=== PATIENT | female | born 1995 | race Caucasian/White ===

== ENCOUNTER 2017-09-09 16:50 | Emergency (ER) | END 2017-09-09 19:20 | disposition home or self-care (01) ==

== ENCOUNTER 2018-08-29 14:39 | Emergency (ER) | payer SELFPAY ==
[~2018-08-29] VITALS: Ht 162.6 cm; Wt 70.7 kg
[~2018-08-29 14:39] MED LIST: AMIT25TA9 PO; DIPH25CA6 PO; IBUP-1542 PO; MED4DP PO
[2018-08-29 15:16] VITALS: BP 153/101; PULSE 83; RESP 20; Ht 162.6 cm; Wt 70.7 kg
== END 2018-08-29 17:10 | disposition left against medical advice (07) ==
LOC: FTE 14:39
DX: Z53.21 Procedure and treatment not carried out due to patient leaving prior to being seen by health care provider (principal)

== ENCOUNTER 2018-09-15 11:02 | Emergency (ER) | payer OTHER ==
[~2018-09-15] VITALS: Ht 165.1 cm; Wt 68.7 kg
[2018-09-15 11:13] VITALS: BP 134/96; PULSE 126; RESP 18; Ht 165.1 cm; Wt 68.7 kg
[2018-09-15] MEDS ORDERED: KETOROLAC 30 MG INJ IM STA (12:25)
[2018-09-15] MEDS ORDERED: IBUP100O28 PO (13:19)
[2018-09-15] MEDS ORDERED: UDTYLC PO (13:19)
[2018-09-15] MEDS ORDERED: PENI250S PO (13:19)
--- NOTE | 2018-09-15 13:30 | ERD ---
ER Documentation Chief Complaint Chief Complaint sorethroat & fever x4 days getting worse HPI This is a 23-year-old female patient who presents to the emergency room with complaint of fever of 103 yesterday, sore throat x4 days. Had been to her primary doctor 3 days ago and was prescribed ibuprofen, loratadine, Flonase. States it is difficult to swallow due to pain. No chronic medical conditions. No sick contacts, no recent travel. ROS All systems reviewed and are negative except as per history of present illness. Medications Home Meds Active Scripts Ibuprofen (Ibuprofen) 100 Mg/5 Ml Oral.susp, 35 ML PO Q6H PRN for PAIN AND OR ELEVATED TEMP for 7 Days, #350 ML Prov:KAYE ROSENTHAL NP 09/15/18 Acetaminophen-Codeine* (Tylenol-Codeine* Liq) [id number] Elix, 25 ML PO Q6H PRN for PAIN for 7 Days, #300 ML Prov:KAYE ROSENTHAL NP 09/15/18 Penicillin V Potassium* (Veetids 250*) 250 Mg/5 Ml Susp.recon, 10 ML PO BID for 10 Days, #200 ML Prov:KAYE ROSENTHAL NP 09/15/18 Methylprednisolone* (Medrol* DOSE PACK) 4 Mg/Dose-Pack Tab.ds.pk, 4 MG PO . DIRECTED for 5 Days, PACKET Prov:JEANNIE MARTIN PA-C 09/09/17 Diphenhydramine Hcl* (Diphenhydramine Hcl*) 25 Mg Capsule, 25 MG PO Q6 PRN for ITCHING for 14 Days, CAP Prov:JEANNIE MARTIN PA-C 09/09/17 Reported Medications Amitriptyline Hcl* (Amitriptyline Hcl*) 25 Mg Tablet, 25 MG PO HS, TAB 03/18/14 Ibuprofen* (Ibuprofen*) 600 Mg Tablet, 600 MG PO Q6-8 HOURS PRN for PAIN, TAB 03/18/14 Allergies Allergies: Coded Allergies: No Known Allergy (Unverified , 09/15/18) PMhx/Soc History of Surgery: Yes (Back surgery for disc disease) Anesthesia Reaction: No Hx Neurological Disorder: No Hx Respiratory Disorders: No Hx Cardiac Disorders: No Hx Psychiatric Problems: No Hx Miscellaneous Medical Probl: No Hx Alcohol Use: No Hx Substance Use: No Hx Tobacco Use: No Smoking Status: Never smoker Physical Exam Vitals Vital Signs Date Temp Pulse Resp B/P (MAP) Pulse Ox O2 O2 Flow FiO2 Time Delivery Rate 09/15/18 98.3 126 18 134/96 99 11:13 (109) Physical Exam Const: No acute distress Head: Atraumatic Eyes: Normal Conjunctiva ENT: Normal External Ears, TM clear BL, no nasal discharge, drinks pink, moist, no petechiae. Tonsils +3 with exudate. Neck: Full range of motion. No meningismus. No lymphadenopathy Resp: Clear to auscultation bilaterally, no wheezing, no rales, no rhonchi Cardio: Regular rate and rhythm, no murmurs Abd: Soft, non tender, non distended. Normal bowel sounds, no hepato-or splenomegaly Skin: No petechiae or rashes Back: No midline or flank tenderness Ext: No cyanosis, or edema Neur: Awake and alert Psych: Normal Mood and Affect Results 24 hrs Laboratory Tests Test 09/15/18 12:16 09/15/18 12:17 Bedside Urine pH (LAB) 6.0 Bedside Urine Protein (LAB) 1+ Bedside Urine Glucose (UA) Negative Bedside Urine Ketones (LAB) 3+ Bedside Urine Blood Trace-intact Bedside Urine Nitrite (LAB) Negative Bedside Urine Leukocyte Esterase (L Negative POC Beta HCG, Qualitative NEGATIVE Monoscreen Negative Current Medications Medications Dose Sig/Marcello Start Time Status Last (Trade) Ordered Route PRN Stop Time Admin Dose Reason Admin Ketorolac 30 mg ONCE STAT 09/15/18 DC 09/15/18 Tromethamine IM 12:25 12:48 (Toradol) 09/15/18 12:29 Procedures/MDM Is a 23-year-old patient who presents the emergency room with complaint of sore throat for 4 days. ED COURSE: The patient was stable throughout ED course. I kept the patient and/or family informed of laboratory and diagnostic imaging results throughout the ED course. MEDICATIONS GIVEN: Toradol Patient tolerated medication well with no adverse reactions. Patient reported improvement in pain. MDM: Although work-up today is negative for mononucleosis or rapid group A strep, antibiotics are being initiated due to exudate, enlarged tonsils, fever. Patient has been instructed on red flags and reasons to immediately return to the emergency room. She has ability for close follow-up with her PMD. I have a low suspicion for meningitis as the patient is not toxic appearing, no nuchal rigidity, and no altered mental status. Exam and w/u not consistent w/ deep space infection of the face, throat, or mastoids. No evidence of impending airway compromise. At the time of discharge, vital signs stable, no respiratory distress. Differential diagnosis include but not limited to: Respiratory infection bact erial/viral/fungal. Influenza, pharyngitis, gastroenteritis, asthma, croup, bronchiolitis, allergies, GERD. Less likely foreign body aspiration, pneumonia . The patient requires a follow up with the primary care provider in the next 48h. If symptoms persist, worsen or new symptoms develop, then patient should return to the ED immediately. Disclaimer: Inadvertent spelling and grammatical errors are likely due to EHR/dictation software use and do not reflect on the overall quality of patient care. Also, please note that the electronic time recorded on this note does not necessarily reflect the actual time of the patient encounter. DISPOSITION: The patient has been discharge home to follow-up with community physician. Departure Diagnosis: Primary Impression: Pharyngitis Condition: Stable Patient Instructions: Pharyngitis, Strep (Presumed) Referrals: [facility] YOU HAVE RECEIVED A MEDICAL SCREENING EXAM AND THE RESULTS INDICATE THAT YOU DO NOT HAVE A CONDITION THAT REQUIRES URGENT TREATMENT IN THE EMERGENCY DEPARTMENT. FURTHER EVALUATION AND TREATMENT OF YOUR CONDITION CAN WAIT UNTIL YOU ARE SEEN IN YOUR DOCTORS OFFICE WITHIN THE NEXT 1-2 DAYS. IT IS YOUR RESPONSIBILITY TO MAKE AN APPOINTMENT FOR FOLOW-UP CARE. IF YOU HAVE A PRIMARY DOCTOR --you should call your primary doctor and schedule an appointment IF YOU DO NOT HAVE A PRIMARY DOCTOR YOU CAN CALL OUR PHYSICIAN REFERRAL HOTLINE AT IF YOU CAN NOT AFFORD TO SEE A PHYSICIAN YOU CAN CHOSE FROM THE FOLLOWING [facility] [id number] [facility] [facility] [address] [facility] [facility] [address] [facility] [facility] [address] [facility]. [facility] [address] [facility]. [facility]. [address] Additional Instructions: Thank you very much for allowing us to participate in your care. Your health and safety is our top priority at [facility]. Call your primary care doctor TOMORROW for an appointment during the next 2-4 days and bring all the information and medications prescribed. Have prescriptions filled and follow precisely the directions on the label. If the symptoms get worse and your provider is unavailable, return to the Emergency Department immediately. COMPLETE ENTIRE COURSE OF ANTIBIOTICS USE LIQUID IBUPROFEN NEEDED FOR PAIN AND COMFORT OR USE LIQUID TYLENOL WITH CODEINE FOR PAIN AND COMFORT- USE CAUTION THIS MEDICATION MAY MAKE YOU DROWSY, IT MAY CAUSE CONSTIPATION, USE AT NIGHT FOR SLEEP FOLLOW-UP WITH YOUR DOCTOR IN 3-5 DAYS RETURN TO THE ER IMMEDIATELY WITH DIFFICULTY SWALLOWING, DROOLING, FEVER, WORSENING OF SYMPTOMS KAYE ROSENTHAL NP September 15, 2018 13:30
== END 2018-09-15 13:44 | disposition home or self-care (01) ==
LOC: FTE 11:02
DX: J02.9 Acute pharyngitis, unspecified (principal)
CPT/HCPCS: 81003; 81025; 86308; 87880; 96372; J1885; Z7502